=== PATIENT | male | born 1985 | race Caucasian/White ===

== ENCOUNTER 2018-01-17 12:55 | Emergency (ER) | payer BC ==
[2018-01-17 14:17] VITALS: BP 127/80
--- NOTE | 2018-01-17 14:59 | UC ---
Skin Complaint HPI - HPI Summary HPI Summary: patient has a 6 cm bulls eye rash on left side of abdomen ---no known tick bite or other c/o---does work out side - History of Current Complaint Chief Complaint: UCSkin Time Seen by Provider: 01/17/18 14:43 Stated Complaint: INSECT BITE Hx Obtained From: Patient Onset/Duration: Sudden Onset, Lasting Days - 2, Still Present, Worse Since - getting worse over the past 2 days Pain Intensity: 0 Pain Scale Used: 0-10 Numeric Location: Discrete Aggravating Factor(s): Nothing Alleviating Factor(s): Nothing Associated Signs & Symptoms: Positive: Negative - Allergy/Home Medications Allergies/Adverse Reactions: Allergies Allergy/AdvReac Type Severity Reaction Status Date / Time No Known Allergies Allergy Verified 01/17/18 14:13 Review of Systems Skin: Other - 6 cm diameter bulls eye rash on leftr side of abdomen Is Patient Immunocompromised?: No All Other Systems Reviewed And Are Negative: Yes PMH/Surg Hx/FS Hx/Imm Hx Previously Healthy: Yes - Surgical History Surgical History: None - Family History Known Family History: Positive: None - Social History Occupation: Employed Full-time Lives: With Family Alcohol Use: Weekly Substance Use Type: None Smoking Status (MU): Heavy Every Day Tobacco Smoker Type: Smokeless Tobacco Amount Used/How Often: 1 can per 3 days Have You Smoked in the Last Year: Yes Cessation Counseling: Patient Advised to Stop Physical Exam Triage Information Reviewed: Yes Appearance: Well-Appearing, No Pain Distress, Well-Nourished Vital Signs: Initial Vital Signs Temp 98.8 F 01/17/18 14:10 Pulse 92 01/17/18 14:10 Resp 15 01/17/18 14:10 BP 127/80 01/17/18 14:10 Pulse Ox 98 01/17/18 14:10 Vital Signs Reviewed: Yes Eye Exam: Normal Eyes: Positive: Conjunctiva Clear ENT Exam: Normal ENT: Positive: Normal ENT inspection, Hearing grossly normal. Negative: Trismus , Muffled voice, Hoarse voice Dental Exam: Normal Neck exam: Normal Neck: Positive: Supple, Nontender Respiratory Exam: Normal Respiratory: Positive: Chest non-tender, No respiratory distress, No accessory muscle use Cardiovascular Exam: Normal Cardiovascular: Positive: RRR, Pulses Normal, Brisk Capillary Refill Musculoskeletal Exam: Normal Musculoskeletal: Positive: Strength Intact, ROM Intact, No Edema Neurological Exam: Normal Neurological: Positive: Alert, Muscle Tone Normal Psychological Exam: Normal Skin Exam: Normal Skin: Positive: Other - 6 cm diameter bulls eye rash left side of abdomen Course/Dx - Course Course Of Treatment: Patient works outside the country [place]. Patient has a bull's-eye rash on the left side of his abdomen. Will Rx with amoxicillin is sensitive doxycycline and follow up with primary care provider will avoid at this point getting a Lyme titer as it's too early for it to be likely positive - Diagnoses Provider Diagnoses: Erythema migrans left side of his abdomen, nicotine dependent Discharge - Sign-Out/Discharge Documenting (check all that apply): Discharge/Admit/Transfer - Discharge Plan Condition: Stable Disposition: HOME Prescriptions: Amoxicillin PO (*) [Amoxicillin 500 MG CAP*] 500 mg PO TID #42 cap Patient Education Materials: Lyme Disease (ED), Tick Bite (ED) Referrals: [facility] [Outside] - 1 Week DREW Deal [Medical Doctor] - 1 Week - Billing Disposition and Condition Condition: STABLE Disposition: Home
== END 2018-01-17 15:15 | disposition home or self-care (01) ==
LOC: UCCORT 12:55 → MERGE 12:55 → UCCORT 15:15
DX: A26.0 Cutaneous erysipeloid (principal); F17.290 Nicotine dependence, other tobacco product, uncomplicated
CPT/HCPCS: 99202; G0463